=== PATIENT | male | born 1980 | race Caucasian/White ===

== ENCOUNTER 2016-08-22 16:00 | Emergency (ER) | payer OTHER ==
[2016-08-22 16:06] VITALS: BP 143/85; PULSE 90; TEMP 98.6; BMI 30.7
--- NOTE | 2016-08-22 18:04 | PDOC ---
History of Present Illness - General Chief Complaint: Laceration Stated Complaint: LACERATION Time Seen by Provider: 08/22/16 17:27 History Source: Patient Exam Limitations: No Limitations - History of Present Illness Initial Comments: 08/22/16 18:04 My chief complaint: Fall hitting chin has laceration to chin History of present illness: Patient is a 36-year-old female here today after falling when standing on a crate and hitting his chin sustaining a laceration to chin on the floor. Patient denies any loss of consciousness. Patient denies any dizziness jaw pain or inability to open mouth no nausea or vomiting or change in vision or level of alertness or any hemotympanum. She is up-to-date with immunizations. Occurred: reports: just prior to arrival Severity: reports: mild Pain Location: reports: face (chin laceration ) Method of Injury: Yes: fall (hitting chin) Modifying Factors: improves with: None Loss of Consciousness: no loss of consciousness Associated Symptoms (Fall): other (laceration chin) Past History - Past Medical History Allergies/Adverse Reactions: Allergies Allergy/AdvReac Type Severity Reaction Status Date / Time No Known Allergies Allergy Verified 08/22/16 16:05 Home Medications: Ambulatory Orders NK [No Known Home Medication] 08/22/16 Other medical history: NONE - Psycho/Social/Smoking Cessation Hx Anxiety: No Suicidal Ideation: No Smoking History: Never smoked Hx Alcohol Use: No Drug/Substance Use Hx: No Substance Use Type: None Review of Systems - Review of Systems Able to Perform ROS?: Yes Constitutional: No: Symptoms Reported HEENTM: No: Symptoms Reported Respiratory: No: Symptoms reported Cardiac (ROS): No: Symptoms Reported ABD/GI: No: Symptoms Reported : No: Symptoms Reported Musculoskeletal: No: Symptoms Reported Integumentary: Yes: Other (linear laceration chin) Neurological: No: Symptoms reported *Physical Exam - Vital Signs Last Vital Signs Temp Pulse Resp BP Pulse Ox 98.6 F 90 20 143/85 9 L 08/22/16 16:01 08/22/16 16:01 08/22/16 16:01 08/22/16 16:01 08/22/16 16:01 - Physical Exam General Appearance: Yes: Appropriately Dressed HEENT: positive: EOMI, DIANA, Normal ENT Inspection, Other (no trismus) Neck: negative: Lymphadenopathy (R), Lymphadenopathy (L), Rigidity, Tender lateral, Tender midline Respiratory/Chest: positive: Lungs Clear, Normal Breath Sounds. negative: Chest Tender, Respiratory Distress Cardiovascular: positive: Regular Rhythm, Regular Rate, S1, S2 Integumentary: positive: Other (linear laceration chin approx 3 cm x 0.25 cm ) Neurologic: positive: Alert, Normal Response, Responsive. negative: Respond to painful stimul, Numbness, Sensory Deficit Procedures - Consent Consent obtained: From Patient - Laceration/Wound Repair Both Face Wound Length: 2.6 to 5.0 cm Wound Explored: clean Wound's Depth, Shape: superficial, linear Irrigated w/ Saline: Yes Betadine Prep: Yes Anesthesia: 1% Lidocaine Amount of Anesthetic (ccs): 3 Wound Repaired With: Sutures Suture Size/Type: 5:0 Number of Sutures: 4 Layer Closure: No Sterile Dressing Applied: No Medical Decision Making - Medical Decision Making 08/22/16 18:06 Patient is a 36-year-old female here today after falling when standing on a crate and hitting his chin sustaining a laceration to chin on the floor. Patient denies any loss of consciousness. Patient denies any dizziness jaw pain or inability to open mouth no nausea or vomiting or change in vision or level of alertness or any hemotympanum. She is up-to-date with immunizations. Chin laceration fall PLAN: applied 4 interrupted to chin without complications Ibuprofen 600 mg po now *DC/Admit/Observation/Transfer Diagnosis at time of Disposition: Fall Qualifiers: Encounter type: initial encounter Qualified Code(s): W19.XXXA - Unspecified fall, initial encounter Laceration of chin without complication Qualifiers: Encounter type: initial encounter Qualified Code(s): S01.81XA - Laceration without foreign body of other part of head, initial encounter - Discharge Dispostion Disposition: HOME Condition at time of disposition: Stable - Patient Instructions Additional Instructions: Cleanse laceration twice daily with antibacterial soap and water pat dry. Tiny amount of bacitracin ointment Return here in 7 days for suture removal or sooner if any redness around wound or discharge from wound or any new symptoms develop Take ibuprofen as needed as directed by automotive brake specialist for pain Patient voiced understanding of discharge instructions and all questions were answered - Post Discharge Activity Work/School Note: Back to Work
[2016-08-22] MEDS ORDERED: IBUPROFEN 600 MG TABLET (FP) PO ONE ×2 (18:11→18:15)
== END 2016-08-22 18:31 | disposition home or self-care (01) ==
LOC: JERFT 16:00
DX: Z48.02 Encounter for removal of sutures (principal)
CPT/HCPCS: 99282-25

== ENCOUNTER 2016-08-30 09:43 | Emergency (ER) | payer OTHER ==
[2016-08-30 09:51] VITALS: BP 145/89; PULSE 89; TEMP 98.4; BMI 32.3
--- NOTE | 2016-08-30 10:30 | PDOC ---
Suture Removal/Wound Check HPI - History of Present Illness Chief Complaint: Suture/Staple Removal(Here) Stated Complaint: SUTURE REMOVAL Time Seen by Provider: 08/30/16 10:20 History Source: Yes: Patient Exam Limitations: Yes: No Limitations [facility] Date of Last ED visit: 08/22/16 - Previous ED Treatment Type of procedure performed on last visit: Yes: Laceration Repair Tetanus Immunization: Yes: Up to Date - Onset of Previous Treatment Date of Occurence: 08/22/16 Past History - Past Medical History Allergies/Adverse Reactions: Allergies No Known Allergies Allergy (Verified 08/30/16 09:48) Home Medications: Ambulatory Orders NK [No Known Home Medication] 08/22/16 General: Yes: no pertinent history - Social History Smoking Status: Current every day smoker Number of Ciarettes Per Day: 10 Suture Removal/Wound Check PE - Physical Exam Laceration/Wound Check Symptoms: reports: None Comments: 08/30/16 10:30 CHIN [address] WOUND EDGES WELL APPPROXIMATED, NO ERYTHEMA OR SIGNS OF INFECTION AREA HEALED WELL Current Severity Level: None Maximum Severity Level: None Pain Localization: None Location of Laceration/Wound: bilateral: Chin (MID) Pain Radiation: None *Review of Systems - Review of Systems Able to Perform ROS?: Yes Constitutional: No: Symptoms Reported HEENTM: No: Symptoms Reported Respiratory: No: Symptoms reported Cardiac (ROS): No: Symptoms Reported ABD/GI: No: Symptoms Reported : No: Symptoms Reported Musculoskeletal: No: Symptoms Reported Integumentary: Yes: Other (CHIN 4 INTERRUPTED SUTURES, PLACED HERE ON 08/22/16) Procedures - Consent Consent obtained: From Patient - Additional Procedures Progress: 08/30/16 10:32 Cleanse chin at suture site with Betadine and normal saline 0.9% removed 4 interrupted sutures without complications wound edges well approximated no signs of infection no scabbing noted no erythema Medical Decision Making - Medical Decision Making 08/30/16 10:32 Suture removal for interrupted from chin no signs of infection noted wound edges well approximated TETNANUS UP TO DATE *DC/Admit/Observation/Transfer Diagnosis at time of Disposition: Visit for suture removal - Discharge Dispostion Disposition: HOME Condition at time of disposition: Stable - Patient Instructions Additional Instructions: You may cleanse your chin as usual with antibacterial soap and water no further treatment needed Patient voiced understanding of discharge instructions and all questions were answered
== END 2016-08-30 10:41 | disposition home or self-care (01) ==
LOC: JERFT 09:43
DX: Z48.02 Encounter for removal of sutures (principal)
CPT/HCPCS: 99281-25